=== PATIENT | male | born 1975 | race Caucasian/White ===

== ENCOUNTER 2017-02-19 03:00 | Emergency (ER) | payer MEDICAID, OTHER ==
[~2017-02-19] VITALS: Ht 167.6 cm; Wt 74.8 kg
[2017-02-19 03:17] VITALS: BP 128/88
--- NOTE | 2017-02-19 03:28 | NUR ---
Patient to bed 05.
--- NOTE | 2017-02-19 03:30 | NUR ---
Dr. Esparza evaluating patient at bedside.
--- NOTE | 2017-02-19 03:36 | NUR ---
PT BIB SELF C/O SORE THROATS X 4 DAYSPT DENIES N/V/D; SKIN IS INTACT, PINK/WARM/DRY; AAOX4, PERRL, WITH EVEN AND STEADY GAIT; LUNGS CLEAR BL, BREATHING UNLABORED; HR EVEN AND REGULAR, BL PERIPHERAL PULSES PRESENT; BS ACTIVE X4, NO TENDERNESS TO PALPATION. PT DENIES ANY FEVER, CP, SOB, OR COUGH AT THIS TIME; PT STATES 5/10 PAIN AT THIS TIME; VSS; PATIENT POSITIONED FOR COMFORT; HOB ELEVATED; BEDRAILS UP X2; BED DOWN.
[2017-02-19] MEDS ORDERED: DEXAMETHASONE 10 MG/ML VIAL PO ONE (03:40)
[2017-02-19] MEDS ORDERED: KETOROLAC 30 MG/ML VIAL IM ONE (03:40)
--- NOTE | 2017-02-19 04:30 | NUR ---
Patient discharged with v/s stable. Written and verbal after care instructions given and explained. Patient alert, oriented and verbalized understanding of instructions. Ambulatory with steady gait. All questions addressed prior to discharge. ID band removed. Patient advised to follow up with PMD. Rx of TYLENOL NO.3, NAPROSYN 500 MG, AMOXICILLIN 500 MG given. Patient educated on indication of medication including possible reaction and side effects. Opportunity to ask questions provided and answered.
[2017-02-19 04:32] VITALS: BP 125/82
== END 2017-02-19 04:30 | disposition home or self-care (01) ==
LOC: MED 03:00
DX: J02.9 Acute pharyngitis, unspecified (principal)
CPT/HCPCS: 96372; 99283; J1100; J1885

== ENCOUNTER 2017-02-26 07:19 | Emergency (ER) | payer OTHER ==
[~2017-02-26] VITALS: Ht 167.6 cm; Wt 76.0 kg
[2017-02-26 07:28] VITALS: BP 114/80
[2017-02-26] MEDS: KETOROLAC 60 MG/2 ML VIAL IM ONE (07:57)
[2017-02-26 08:05] VITALS: BP 105/76
== END 2017-02-26 08:05 | disposition home or self-care (01) ==
LOC: MED 07:19
DX: R07.89 Other chest pain (principal); K21.9 Gastro-esophageal reflux disease without esophagitis; I10 Essential (primary) hypertension
CPT/HCPCS: 96372; 99283; J1885

== ENCOUNTER 2017-03-23 05:06 | Emergency (ER) | payer OTHER ==
[~2017-03-23] VITALS: Ht 167.6 cm; Wt 72.6 kg
[2017-03-23 05:10] VITALS: BP 133/86
--- NOTE | 2017-03-23 05:16 | NUR ---
TO ER BED 5
--- NOTE | 2017-03-23 05:30 | NUR ---
Patient being evaluated by physician at bedside.
[2017-03-23] MEDS ORDERED: ALBUTEROL SULFATE/IPRATROPIU 3 ML SOL IH ONE (06:00)
--- NOTE | 2017-03-23 06:04 | NUR ---
BREATHING TREATMENT GIVEN BY RT.
--- NOTE | 2017-03-23 06:18 | NUR ---
MD RE-EVALUATED AND DISCUSSD PLAN OF CARE WITH PT. PT. VERBALIZED SOME IMPROVEMENT OF SYMPTOMS.
--- NOTE | 2017-03-23 06:25 | NUR ---
DISCHARGED STABLE AND IMPROVED. PRESCRIPTIONS, VERBAL AND WRITTEN AFTERCARE INSTRUCTIONS GIVEN. VERBALIZED UNDERSTANDING.
[2017-03-23 06:30] VITALS: BP 145/80
== END 2017-03-23 06:25 | disposition home or self-care (01) ==
LOC: MED 05:06
DX: J20.9 Acute bronchitis, unspecified (principal); K21.9 Gastro-esophageal reflux disease without esophagitis; I10 Essential (primary) hypertension
CPT/HCPCS: 71010; 94640; 99283; J7620